=== PATIENT | male | born 1965 | race Caucasian/White ===

== ENCOUNTER 2017-11-10 08:16 | Emergency (ER) | payer BC ==
[~2017-11-10] VITALS: Ht 177.8 cm; Wt 99.7 kg
[~2017-11-10 08:16] MED LIST: ASPIR-TRIN325 M1 PO; EFFIENT10 MG PO; LIPITOR80 MG PO; LOPRESSOR25 MG PO; NICOTINE PATCH; NOHOMEMEDS; Nitrostat,NitroQuick SL; Zestril,Prinivil PO
[2017-11-10] MEDS ORDERED: LIDODERM 5% P1 PATCH TD (09:30)
[2017-11-10] MEDS ORDERED: ULTRAM50 MG PO (09:30)
[2017-11-10] MEDS ORDERED: FLEXERIL10 MG PO (09:30)
[2017-11-10 09:59] VITALS: BP 120/87
== END 2017-11-10 10:01 | disposition home or self-care (01) ==
LOC: EME 08:16
DX: S39.012A Strain of muscle, fascia and tendon of lower back, initial encounter (principal); Y93.H1 Activity, digging, shoveling and raking
CPT/HCPCS: 99281; 99284